=== PATIENT | female | born 1965 | race Caucasian/White ===

== ENCOUNTER 2019-02-25 09:52 | Inpatient (IN) ==
--- NOTE | 2019-02-25 10:25 | EKG Report ---
Test Performed on : 02/25/2019 10:03:53 AM Test Reason : epigastric Blood Pressure : / mmHG Vent. Rate : 074 BPM Atrial Rate : 074 BPM P-R Int : 124 ms QRS Dur : 080 ms QT Int : 396 ms P-R-T Axes : 048 051 051 degrees QTc Int : 439 ms Normal sinus rhythm. Normal ECG No previous ECGs available Unconfirmed Result
[2019-02-25 10:39] LABS: BASO# 0.03 X1000 (0.0-0.2); BASO% 0.4 % (0.0-0.8); EOS# 0.29 X1000 (0.0-0.7); EOS% 3.4 % (0.0-10.0); HEMOGLOBIN 14.8 g/dL (12.0-16.0); IMM GRAN# 0.03 X1000 (0.0-0.04); IMM GRAN% 0.4 % (0.0-0.5); LYMPH# 1.91 X1000 (1.2-3.4); LYMPH% 22.6 % (20.5-51.1); MCH 28.8 PG (27-31); MCHC 32.9 g/dL (33-37); MCV 87.5 FL (81-99); MONO# 0.48 X1000 (0.11-0.59); MONO% 5.7 % (1.7-9.3); MPV 10.6 FL (7.4-10.4); NEUT% 67.5 % (42.2-75.2); PLT 208 X1000 (130-400); RBC 5.14 XMIL (4.2-5.4); RDW 13.1 % (11.5-14.5); WBC 8.44 X1000 (4.8-10.8)
[2019-02-25] MEDS ORDERED: ZOFRAN IV ONE (11:02)
[2019-02-25] MEDS ORDERED: DILAUDID IV ONE ×2 (11:02→13:07)
--- NOTE | 2019-02-25 11:03 | PROVIDER DOCUMENTATION ---
HPI-Abdominal Pain/GI Problem - General Chief Complaint: Abdominal Pain Stated Complaint: UPPER ABD PAIN Time Seen by Provider: 02/25/19 10:03 Source: patient Allergies/Adverse Reactions: Patient Allergies Allergy/AdvReac Type Severity Reaction Status Date / Time chocolate flavor Allergy ANAPHYLAXIS Verified 02/25/19 17:27 cinnamon Allergy ANAPHYLAXIS Verified 02/25/19 17:27 morphine Allergy HIVES Verified 02/25/19 17:03 peanut Allergy ANAPHYLAXIS Verified 02/25/19 17:27 Sulfa (Sulfonamide Allergy ITCHING Verified 04/26/16 18:08 Antibiotics) Home Medications: Home Medication List Medication Instructions Recorded Confirmed Last Taken Type Hydrocodone/Acetaminophen [[place] 1 ea PO Q6H PRN PRN #10 tab 02/27/19 Unknown Rx 7.5-325 Tablet] - History of Present Illness-ABD Nature of Presenting Problems: 53 YO F no pmh presents with c/o abd pain x 12 hours associated n/v. last BM was today and normal. Last took Maalox 1hr [employer]. Abdominal Pain Onset Location: reports: epigastric Pain Radiation: reports: back Quality of Pain: reports: aching, sharp, tearing Onset/Duration: reports: other (12 hours ago) Timing: reports: still present, getting worse Activities at Onset: reports: none Exposure to sick contacts?: No Modifying Factors: improves with: nothing Associated Symptoms: reports: heartburn, loss of appetite. denies: cough, di arrhea, dizziness, malaise, nausea, syncope, vomiting Last BM: this morning Dark Stools Present?: reports: none noticed Review of Systems - Adult - REVIEW OF SYSTEMS - ADULT Constitutional: denies: chills, fever Eyes: reports: no symptoms reported Ears, Nose, Mouth & Throat: reports: no symptoms reported Cardiovascular: reports: no symptoms reported. denies: chest pain Respiratory: reports: no symptoms reported. denies: cough, shortness of breath, wheezing Gastrointestinal: reports: see HPI, abdominal pain, nausea, poor appetite. denies: vomiting Genitourinary: reports: no symptoms reported Musculoskeletal: reports: no symptoms reported Integumentary: reports: no symptoms reported Neurological: reports: no symptoms reported Psychiatric: reports: no symptoms reported Endocrine: reports: no symptoms reported Hematologic/Lymphatic: reports: no symptoms reported Past History - Adult - PAST MEDICAL HISTORY-ADULT Review of Records: reports: Old Records Reviewed, Social history reviewed & non- contributory. Major Childhood Illnesses: reports: denies history Cardiovascular: reports: denies history Respiratory: reports: bronchitis, COPD Gastrointestinal: reports: denies history Obstetrical/Gynecological: reports: denies history Genitourinary: reports: denies history Musculoskeletal: reports: denies history Neurological: reports: denies history Psychiatric: reports: denies history Endocrine/Immune: reports: denies history Other Conditions: reports: denies history - PRIOR SURGERIES/PROCEDURES Surgical/Procedure History: reports: other (none recent) - IMMUNIZATION STATUS Childhood Immunizations: UTD - FAMILY HISTORY Family History: reviewed, not pertinent - SOCIAL HISTORY Smoking: cigarettes, less than 1 pack/day Substance Use: denies Alcohol Use Frequency: occasionally Living Situation: family Physical Exam-General - PHYSICAL EXAM-ADULT Initial Vital Signs Reviewed: Yes - CONSTITUTIONAL General Appearance: alert, moderate distress (from pain) - EYES Eyes: PERRL/EOMI, pink conjunctivae - HEAD, EARS, NOSE, MOUTH & THROAT HENMT: normocephalic/atraumatic, moist mucous membranes - NECK Neck: supple - RESPIRATORY Respiratory: lungs clear, normal breath sounds, no pleuratic chest pain - CARDIOVASCULAR Cardiovascular: regular rate, rhythm, no edema - GASTROINTESTINAL (ABDOMEN) Abdominal Exam: non tender, soft. negative: rebound, tenderness (could not illicit a tender spot on exam) - MUSCULOSKELETAL Back Exam: no CVA tenderness Extremity: normal range of motion, normal gait, normal inspection, no pedal edema - SKIN Integumentary: normal color, normal turgor, warm/dry - NEUROLOGIC Neurologic: grossly normal - PSYCHIATRIC Psych/Mental Status: normal mood/affect, tearful Progress - PLAN OF CARE/RESULTS Progress/Plan/Lab Results: Vital Signs - 8 hr 02/25/19 09:56 Temperature 97.7 F Pulse Rate 80 Respiratory Rate 18 Blood Pressure 167/102 O2 Sat by Pulse Oximetry 98 Laboratory Results - last 24 hr 02/25/19 10:04 WBC 8.44 RBC 5.14 Hgb 14.8 Hct 45.0 MCV 87.5 MCH 28.8 MCHC 32.9 L RDW Std Deviation 13.1 Plt Count 208 MPV 10.6 H Immature Gran % (Auto) 0.4 Neut % (Auto) 67.5 Lymph % (Auto) 22.6 [place] % (Auto) 5.7 Eos % (Auto) 3.4 Baso % (Auto) 0.4 Immature Gran # (Auto) 0.03 Neut # (Auto) 5.70 Lymph # (Auto) 1.91 [place] # (Auto) 0.48 Eos # (Auto) 0.29 Baso # (Auto) 0.03 Orders Category Date Time Status Saline Loc DIRECTED Care 02/25/19 10:03 Active NPO Diet 02/25/19 10:[address] ABDOMEN/PELVIS W/O CONTRAST [CT] Stat Exams 02/25/19 11:01 Ordered AMYLASE [CHEM] Stat Lab 02/25/19 10:04 Received CBC WITH ELECTRONIC DIFF [HEME] Stat Lab 02/25/19 10:04 Completed COMPREHENSIVE METABOLIC PANEL [CHEM] Stat Lab 02/25/19 10:04 Received LIPASE [CHEM] Stat Lab 02/25/19 10:04 Received TEST-URINE [PREG] Stat Lab 02/25/19 10:03 Uncollected URINALYSIS W/POSS RFLX CULT [URINALYSIS] Stat Lab 02/25/19 10:03 Uncollected Hydromorphone [Dilaudid] Med 02/25/19 11:02 Once 1 mg IV NOW ONE Ondansetron [Zofran] Med 02/25/19 11:02 Once 4 mg IV NOW ONE EKG [EKG] Stat Ther 02/25/19 10:04 Draft paged for gen surg at 1155 Result Diagrams: 02/25/19 10:04 02/27/19 06:38 - REASSESSMENT Reassessment #1 Time Reassessed: 11:45 Status: improving (pt resting comfortably, pain improving.) Reassessment #2 Time Reassessed: 13:27 Status: worsening (pt reevaluated, in sig pain. will give more dilaudid and admit) Reassessment #3 Time Reassessed: 14:02 Status: other (informed Dr. Villalba about admitting pt. will admit to [facility] for pain control.) - EKG 1 Time of EKG reading by physician:: 10:05 EKG Read and Signed by:: Gabo Garza EKG Interpretation (*Must complete 3 of following elements*): Normal Rate: 74 Rhythm: NSR [place]: normal QRS: normal OR Interval: normal ST Wave: normal Prior EKG Comparison: no prior EKG - CT/MRI 1 CT Study: Abdomen, Pelvis Impression: See EMR Report (EXAM: CT ABDOMEN/PELVIS W/O CONTRAST INDICATION: epigastric pain TECHNIQUE: This exam was performed using automated exposure control, adjustment of mA or kV according to patient size, and/or use of iterative reconstruction technique. COMPARISON: 04/26/2016 FINDINGS: There are several stable large stones in the gallbladder lumen. No pericholecystic inflammatory changes appreciated. There is no evidence of biliary dilatation. The spleen is borderline to mildly prominent but essentially stable measuring up to 13.6 cm in the greatest axial dimension. The liver, pancreas, adrenal glands, kidneys, and urinary bladder are grossly unremarkable. The reproductive tract is unremarkable as imaged. There is mild uncomplicated sigmoid colonic diverticulosis. There is no evidence of appendicitis. No bowel wall thickening or bowel obstruction is appreciated. The remainder of the GI tract is grossly unremarkable. No focal inflammatory changes, free abdominal gas, or free fluid is appreciated. There is no evidence of acute osseous abnormality. IMPRESSION: 1.Cholelithiasis. 2.Stable borderline to mildly prominent spleen. 3.Very mild uncomplicated diverticulosis coli. 4.No definite acute pathology by CT.) - CONSULTS/PCP/HOSPITALIST Notification #1 *Consult/PCP/Hospitalist*: Spoke with Dr. Villalba Time Discussed: 13:06 (states to send pt to office now.) Consult Disposition: F/U in office #2 Consult: admit to hospitalist Time Discussed: 14:20 Consult Disposition: Will see in ED, Admit Departure - Departure Date of Disposition Decision: 02/25/19 Time of Disposition Decision: 11:40 DIAGNOSIS: Acute cholecystitis Disposition: ADMITTED INPATIENT 09 Certified Medical Emergency: Emergent Condition: Stable - Critical Care Note This patient required my direct & personal management of CC.: No Attestation - Physician/ MOE Attestation The physician spent face to face time with patient:: Yes Advanced Practice Provider documentation review:: Supervising physician onsite and consulted in the evaluation and care of this patient. The physician did have a face to face encounter with the patient.
[2019-02-25 11:04] LABS: AGAP 13; ALB/GLOB RATIO 1.5; ALBUMIN 4.1 g/dL (3.5-5.0); ALKALINE PHOSPHATASE 122 U/L (32-104); AMYLASE 68 U/L (20-200); BUN 13 mg/dL (8-22); CALCIUM 9.2 mg/dL (8.8-10.2); CHLORIDE 98 mmol/L (98-107); COSMO 272; CREATININE 0.6 mg/dL (0.5-0.9); ESTIMATED GFR > 60; GLUCOSE 102 mg/dL (70-104); GOT 49 U/L (10-30); GPT 47 U/L (10-36); LIPASE 26 U/L (13-60); POTASSIUM 4.5 mmol/L (3.5-5.1); SODIUM 136 mmol/L (136-145); TCO2 25 mmol/L (25-35); TOTAL BILIRUBIN 0.28 mg/dL (0.20-1.00); TOTAL PROTEIN 6.9 g/dL (6.3-8.3)
--- NOTE | 2019-02-25 11:32 | Diag Imaging Result Doc PS360 ---
EXAM: CT ABDOMEN/PELVIS W/O CONTRAST INDICATION: epigastric pain TECHNIQUE: This exam was performed using automated exposure control, adjustment of mA or kV according to patient size, and/or use of iterative reconstruction technique. COMPARISON: 04/26/2016 FINDINGS: There are several stable large stones in the gallbladder lumen. No pericholecystic inflammatory changes appreciated. There is no evidence of biliary dilatation. The spleen is borderline to mildly prominent but essentially stable measuring up to 13.6 cm in the greatest axial dimension. The liver, pancreas, adrenal glands, kidneys, and urinary bladder are grossly unremarkable. The reproductive tract is unremarkable as imaged. There is mild uncomplicated sigmoid colonic diverticulosis. There is no evidence of appendicitis. No bowel wall thickening or bowel obstruction is appreciated. The remainder of the GI tract is grossly unremarkable. No focal inflammatory changes, free abdominal gas, or free fluid is appreciated. There is no evidence of acute osseous abnormality. IMPRESSION: 1.Cholelithiasis. 2.Stable borderline to mildly prominent spleen. 3.Very mild uncomplicated diverticulosis coli. 4.No definite acute pathology by CT. Electronically signed by Freddie So 02/25/2019 11:29 AM
[2019-02-25 11:43] LABS: URINE SOURCE CLEAN CATCH
[2019-02-25 11:48] LABS: BILIRUBIN URINE NEGATIVE (NEGATIVE); BLOOD URINE NEGATIVE (NEGATIVE); COLOR YELLOW; GLUCOSE URINE NEGATIVE (NEGATIVE); KETONE URINE NEGATIVE (NEGATIVE); LEUKOCYTES URINE NEGATIVE (NEGATIVE); NITRITE URINE NEGATIVE (NEGATIVE); PROTEIN URINE TRACE mg/dL (NEGATIVE); SP GRAVITY URINE 1.024; TURBIDITY URINE CLEAR (CLEAR); UR EPITHELIAL CELLS <10 /HPF (<10); URINE BACTERIA 1+ /HPF; URINE RBC <10 /HPF (<10); URINE WBC <10 /HPF (<10); UROBILINOGEN URINE NORMAL (NORMAL)
[2019-02-25 12:04] LABS: UR AMPHETAMINES QUAL NONE DETECTED (NONE DETECT); UR BARBITUATES QUAL NONE DETECTED (NONE DETECT); UR BENZODIAZEPIN QUAL NONE DETECTED (NONE DETECT); UR CANNABINOIDS QUAL NONE DETECTED (NONE DETECT); UR COCAINE QUAL NONE DETECTED (NONE DETECT); UR METHADONE QUAL NONE DETECTED (NONE DETECT); UR OPIATES QUAL NONE DETECTED (NONE DETECT); UR OXYCODONE QUAL PRESUMPTIVE POSITIVE (NONE DETECT); UR PCP QUAL NONE DETECTED (NONE DETECT)
[2019-02-25] MEDS ORDERED: CIPRO PO ONE (13:04)
[2019-02-25] MEDS ORDERED: FLAGYL PO ONE (13:05)
[2019-02-25] MEDS ORDERED: NS 1,000 ML IV ONE (14:02)
[2019-02-25] MEDS ORDERED: TORADOL IV ONE (14:24)
[2019-02-25] MEDS ORDERED: BENTYL IM ONE (14:25)
[2019-02-25] MEDS ORDERED: SODIUM CHLORIDE 0.9% INJ ONE (16:35)
[2019-02-25] MEDS ORDERED: PEPCID IV ONE (16:35)
[2019-02-25] MEDS: DEMEROL IV PRN (17:00)
[2019-02-25] MEDS: NS 1,000 ML IV SCH (17:31)
[2019-02-25] MEDS: PEPCID IV SCH (21:01)
--- NOTE | 2019-02-25 21:38 | HISTORY AND PHYSICAL ---
PRIMARY CARE PROVIDER: None. CHIEF COMPLAINT: Intractable pain. HISTORY OF PRESENT ILLNESS: Ms. Ching is a 53-year-old female who carries a past medical history of GERD, gastric ulcers who reported that around 3 3:04 a.m. she started having epigastric pain that radiated to her left upper quadrant. She did not get any relief with Mylanta or Protonix. She came to the ED to be evaluated. She had a abdomen and pelvis CT that showed cholelithiasis, transaminitis. Imaging was reviewed by Dr. Villalba. The patient was initially set to be discharged and follow up him as an outpatient. However, the patient continued to have intractable pain, so she will be admitted with a General Surgery consult. We will keep her NPO, continue IV fluids, antiemetics, pain regimen and IV proton pump inhibitor. PAST MEDICAL HISTORY: GERD, gastric ulcer. PAST SURGICAL HISTORY: Tubal ligation. FAMILY HISTORY: Denies anything in first-degree relatives. HOME MEDICATIONS: Just [id number] Tagamet, Mylanta and Protonix. SOCIAL HISTORY: She is . She has children. She is a half pack per day smoker. No alcohol or illicit drug use. REVIEW OF SYSTEMS: Completely negative except for those mentioned in HPI. ALLERGIES: Levofloxacin and sulfa causes itching. PHYSICAL EXAMINATION: VITAL SIGNS: Temperature is 97.8 degrees, heart rate 80, respirations 18, blood pressure 167/102, O2 is 98% on room air. GENERAL: Ms. Ching is a 53-year-old female who is lying on her right side, holding her abdomen, appears to be in pain, but in no acute distress. HEENT: Atraumatic, normocephalic. PERRL. NECK: Supple. Trachea midline. CARDIOVASCULAR: S1, S2 appreciated. No murmurs, gallops, rubs noted. RESPIRATORY: Lung sounds clear bilaterally. GI: Is soft and tender in the epigastric region. Positive bowel sounds 4 quadrants. EXTREMITIES: Lower extremities are negative for edema. NEUROLOGIC: No focal deficits noted. DIAGNOSTIC DATA: Abdomen and pelvis CT: Cholelithiasis stable borderline, mildly prominent spleen, very mild uncomplicated diverticulosis coli. EKG: Normal sinus rhythm. LABORATORY DATA: Is essentially remarkable. Elevated transaminitis with AST of 49, ALT of 47, alkaline phosphatase of 122. ASSESSMENT AND PLAN: 1. Cholelithiasis with intractable pain. We will continue NPO status, IV fluids, IV Demerol, antiemetics. Consult Dr. Villalba. 2. Gastritis. We will continue with IV proton pump inhibitor. 3. Further recommendations to follow physician evaluation, laboratory and diagnostic data. 4. Transaminitis secondary to #1. Dictated by CHACE Dai for Justen Vasquez MD cc: MD Kayla Rodriguez MD
--- NOTE | 2019-02-26 02:56 | HISTORY AND PHYSICAL ---
ADDENDUM: The patient was seen and examined by me [id number]. All the laboratory, lab, vital signs, and images were reviewed. The patient presented to the emergency department complaining of abdominal pain. As per the patient, the pain started around 4 a.m. Also, as per the patient, she has been having this kind of problems before. Actually, I checked her laboratory back in 2017 and her LFTs were elevated. She knows that she has been having some gallstones since 2009. We did a CT scan that showed cholelithiasis and Surgery Department has evaluated this patient. She does not have leukocytosis or fever, but they are planning to do a cholecystectomy tomorrow. This patient has been placed NPO, continue with IV fluids. I agree with the rest of the nurse practitioner's assessment and plan. cc: Justen Vasquez MD
--- NOTE | 2019-02-26 07:40 | CONSULTATION ---
DATE OF CONSULTATION: 02/25/2019 Pham Ching is a 53-year-old white female who was admitted through our emergency department after suffering a gallbladder attack. She presented to the emergency department with epigastric pain. A CT scan was performed which documented gallstones but no surrounding inflammation around the gallbladder. They could not control her symptoms in the emergency room and therefore she was admitted for further care. PAST MEDICAL HISTORY: Tubal ligation, cervical spine disk problem, COPD. MEDICATIONS: None. ALLERGIES: Sulfa. SOCIAL HISTORY: She does smoke. She is not working. She lives in [place]. Her family was at the bedside. REVIEW OF SYSTEMS: A 14-point review of systems was performed and was essentially negative. She has had previous gallbladder attacks. FAMILY HISTORY: Family history was reviewed with her and was essentially noncontributory. PHYSICAL EXAMINATION: General: Ms. Ching is a middle-aged white female no acute distress. Vital Signs: Her temperature is 97.7 degrees, pulse is 80, blood pressure 167/102, O2 saturation 98%. She is 5 feet 5 inches. She weighs 201 pounds. HEENT exam: No jaundice. No oral lesions. Satisfactory dentition. No cervical or supraclavicular lymphadenopathy. Heart: Has regular rate. Lungs: Are clear to auscultation and percussion bilaterally. Abdomen: Was soft. I could not feel her gallbladder. She did not have much tenderness. She had no previous scar or evidence of hernia. No costovertebral tenderness. Rectal and vaginal: Exams were not performed. Extremities: She does have palpable peripheral pulses. No peripheral edema. Neurological: She is alert and oriented x3 and appropriate. IMPRESSION: Symptomatic gallstones. PLAN: Laparoscopic cholecystectomy with intraoperative cholangiogram. Hopefully, we can do this tomorrow. I have discussed the procedure in detail with her at the bedside including her including risks of bleeding, infection, injury to the extrahepatic bile ducts requiring reoperation, conversion of laparoscopic to open cholecystectomy, bile leak requiring reoperation for drainage, and injury to intra-abdominal contents for trocar placement. She understands the need for surgery and its risks and she wants to proceed. cc: Kayla Villalba MD
[2019-02-26 07:46] LABS: AGAP 10; ALB/GLOB RATIO 1.2; ALBUMIN 3.5 g/dL (3.5-5.0); ALKALINE PHOSPHATASE 120 U/L (32-104); BUN 7 mg/dL (8-22); CALCIUM 8.8 mg/dL (8.8-10.2); CHLORIDE 102 mmol/L (98-107); COSMO 271; CREATININE 0.6 mg/dL (0.5-0.9); ESTIMATED GFR > 60; GLUCOSE 91 mg/dL (70-104); GOT 41 U/L (10-30); GPT 37 U/L (10-36); POTASSIUM 4.4 mmol/L (3.5-5.1); SODIUM 137 mmol/L (136-145); TCO2 25 mmol/L (25-35); TOTAL BILIRUBIN 0.44 mg/dL (0.20-1.00); TOTAL PROTEIN 6.5 g/dL (6.3-8.3)
[2019-02-26] MEDS: PEPCID IV SCH (08:22)
[2019-02-26] MEDS: DEMEROL IV PRN ×3 (08:22→22:33)
[2019-02-26] MEDS: NS 1,000 ML IV SCH (08:23)
--- NOTE | 2019-02-26 13:28 | PROGRESS NOTE ---
DATE: 02/26/2019 SUBJECTIVE: This patient is feeling better. She is still complaining of some mild right upper quadrant pain, she is scheduled today for a cholecystectomy, hopefully laparoscopically. OBJECTIVE: Vital Signs: Temperature 98.1 degrees, pulse 74, respiratory rate 14, blood pressure 141/83, oxygen saturation 98 on room air. HEENT: Head normocephalic, no trauma. PERRLA. Neck: Supple. No JVD. No masses. Central trachea. Chest: Clear to auscultation. No wheezing. No rales. Abdomen: Soft. Some tenderness to palpation at the level of the right upper quadrant. Extremities: No edema, no clubbing, no cyanosis. Neurological: The patient is alert. She is oriented x3. No focal deficits. LABORATORY: Sodium 137, potassium 4.4, chloride 102, bicarbonate 25, BUN 7, creatinine 0.6 glucose 91, calcium 8.8. AST 41, ALT 37, alkaline phosphatase 120. ASSESSMENT AND PLAN: 1. Cholelithiasis with symptomatic gallstones. Surgery department has evaluated this patient. She is SP she has been placed on pain medication and IV fluids. She is scheduled to get a cholecystectomy done today. 2. Gastritis. Continue with proton pump inhibitors. 3. Transaminitis secondary to #1. cc: Justen Vasquez MD
[2019-02-26] MEDS ORDERED: SODIUM CHLORIDE 0.9% ONE (14:32)
[2019-02-26] MEDS ORDERED: MARCAINE 0.25% PF/EPI 1:200,000 ONE (14:32)
[2019-02-26] MEDS ORDERED: LR 1,000 ML ONE (14:33)
[2019-02-26] MEDS ORDERED: DIPRIVAN 1% ONE (14:40)
[2019-02-26] MEDS ORDERED: VERSED ONE (14:42)
[2019-02-26] MEDS ORDERED: KEFZOL 1 GM/D5W 1 GM/50 ML IVPB IV ONE (14:56)
[2019-02-26] MEDS ORDERED: DILAUDID ONE (15:35)
[2019-02-26] MEDS ORDERED: XYLOCAINE-MPF 2% ONE (16:00)
[2019-02-26] MEDS ORDERED: QUELICIN (DOSE) ONE (16:00)
[2019-02-26] MEDS ORDERED: DECADRON ONE (16:00)
[2019-02-26] MEDS ORDERED: ZEMURON ONE (16:00)
[2019-02-26] MEDS ORDERED: OFIRMEV 1000 MG/ISOTONIC SOLN 1,000 MG/100 ML BOTTLE ONE (16:00)
[2019-02-26] MEDS ORDERED: ROBINUL ONE (16:00)
[2019-02-26] MEDS ORDERED: NEOSTIGMINE ONE (16:00)
[2019-02-26] MEDS ORDERED: ZOFRAN ONE (16:00)
--- NOTE | 2019-02-26 16:24 | Diag Imaging Result Doc PS360 ---
EXAM: OPERATIVE CHOLANGIOGRAM 02/26/2019 HISTORY: GALLBLADDER TECHNIQUE: One image COMMENT: There are no filling defects. Contrast is seen entering the duodenum. IMPRESSION: No evidence of retained stones. Electronically signed by Cirilo Schroeder 02/26/2019 4:21 PM
--- NOTE | 2019-02-26 21:44 | OPERATIVE NOTE ---
PROCEDURE DATE: 02/26/2019 PREOPERATIVE DIAGNOSIS: Acute cholecystitis with cholelithiasis. POSTOPERATIVE DIAGNOSIS: Acute cholecystitis with cholelithiasis. PRINCIPAL PROCEDURE: Laparoscopic cholecystectomy with intraoperative cholangiogram. SURGEON: Kayla Villalba MD. ANESTHESIA: General in addition to local anesthetic. ESTIMATED BLOOD LOSS: 100 mL. DRAINS: None. INDICATIONS: Ms. Pham Ching is a 54-year-old, white female, who presented to our emergency department yesterday, with epigastric and right upper quadrant pain. CT scan of her abdomen suggested gallstones. It was felt that her gallstones were symptomatic. They were unable to control her symptoms while in the emergency department, and therefore she was admitted for further treatment. FINDINGS: She had acute cholecystitis. Her gallbladder was acutely inflamed, distended, and full of stones. We did do an intraoperative cholangiogram, which showed free flow of the dye into the duodenum without evidence of extrahepatic stones or obstruction. There was no abnormal dilatation of the extrahepatic bile ducts. The liver appeared to be normal and no other intra-abdominal pathology was noted. DESCRIPTION OF PROCEDURE: The patient was brought to the operating room, placed supine, received general anesthesia, was intubated. Her abdomen was prepped and draped within the sterile field. We made a curvilinear incision below the umbilicus using a 15-blade scalpel. Veress needle was introduced through this incision into the abdomen. Pneumoperitoneum was established. The Veress needle was removed and we placed a 11 mm trocar through this incision into the abdomen. The camera was placed through this port. The abdomen was explored for injury and there was none. Three other trocars were placed along the right costal margin under direct vision of the camera. We placed an 11 mm trocar just to the right of the midline, and two 5 mm trocars in our midclavicular and anterior axillary lines. Her omentum was tightly adhered to the fundus and underside of the gallbladder. We had to take it down bluntly. She had some large lymph nodes within the triangle of [place]. We decompressed the gallbladder with a needle and suction, and there was clear, slightly green bile within it. She had multiple stones. We used a grasper with teeth to grab the fundus of the gallbladder and retracted superiorly along with the right lobe of the liver. Another grasper was used to grab the body of the gallbladder and this was a difficult dissection. We had to take down all the inflamed omentum off the underside of the gallbladder. We had to remove some of the lymph nodes and push them down as we dissected the triangle of [place]. We identified the cystic artery initially, 2 clips were placed proximally, 1 distally, and it was divided using hook scissors. We had to bluntly take it down and follow the gallbladder where we could find the cystic duct. We placed a clip at the cystic duct-gallbladder junction. We made a small incision in the cystic duct using hook scissors and a taut intraoperative cholangiogram catheter was used to perform the cholangiogram with the findings above. Once cholangiogram was completed, 2 clips were placed proximally on the cystic duct, and we divided the cystic duct between clips using hook scissors. The spatula cautery was used to remove the gallbladder from the liver bed and then we used an endobag to remove the gallbladder through our umbilical incision. We had to enlarge this incision slightly to remove this inflamed gallbladder full of stones. We placed the trocar back through this incision, and the area of operation was thoroughly inspected, irrigated, and the irrigation was removed with suction. There was no evidence of ongoing bleeding or bile leak. We decided against leaving drains. All trocars removed under direct vision of the camera. The pneumoperitoneum was allowed to dissipate. I used 2 figure-of- eight, 2-0 Vicryl stitches to reapproximate the fascia at the umbilicus and all skin was closed with 4-0 Monocryl subcuticular stitches. Steri-Strips were applied. She tolerated the procedure well with plans for her to go to the recovery room and then be readmitted to the floor. cc: Kayla Villalba MD
[2019-02-26] MEDS: ZOFRAN IV PRN (22:33)
[2019-02-27] MEDS: SODIUM CHLORIDE 0.9% INJ SCH ×2 (01:01→08:52)
[2019-02-27] MEDS: PEPCID IV SCH ×2 (01:01→08:52)
[2019-02-27] MEDS: NS 1,000 ML IV SCH (01:06)
[2019-02-27] MEDS: DEMEROL IV PRN ×3 (02:37→11:09)
[2019-02-27] MEDS: ZOFRAN IV PRN (07:01)
[2019-02-27 08:09] LABS: AGAP 11; ALBUMIN 3.4 g/dL (3.5-5.0); ALKALINE PHOSPHATASE 119 U/L (32-104); BUN 7 mg/dL (8-22); CALCIUM 9.2 mg/dL (8.8-10.2); CHLORIDE 101 mmol/L (98-107); COSMO 272; CREATININE 0.6 mg/dL (0.5-0.9); ESTIMATED GFR > 60; GLUCOSE 102 mg/dL (70-104); GOT 47 U/L (10-30); GPT 38 U/L (10-36); POTASSIUM 4.5 mmol/L (3.5-5.1); SODIUM 137 mmol/L (136-145); TCO2 25 mmol/L (25-35); TOTAL BILIRUBIN 0.41 mg/dL (0.20-1.00); TOTAL PROTEIN 6.7 g/dL (6.3-8.3)
[2019-02-27 11:37] VITALS: BP 136/77
--- NOTE | 2019-02-28 14:13 | DISCHARGE SUMMARY ---
ADMISSION DATE: 02/25/2019 DISCHARGE DATE: 02/27/2019 ADMITTING DIAGNOSIS: Acute cholecystitis. DISCHARGE DIAGNOSIS: Acute cholecystitis. PRINCIPAL PROCEDURE: Laparoscopic cholecystectomy with intraoperative cholangiogram on 02/26/2019. DISCHARGE DISABILITY: Full. DISCHARGE DIET: Regular. DISCHARGE DISPOSITION: She will return to my outpatient offices in 7 to 10 days for a recheck. DISCHARGE MEDICATIONS: She is to return to her home medications. HISTORY AND HOSPITAL COURSE: Ms. Pham Ching is a 54-year-old white female who presented to our emergency department on 02/25/2019 with epigastric and right upper quadrant pain. A CT scan of her abdomen and pelvis was performed, which documented cholelithiasis. It was felt that she had symptomatic gallstones, and she was admitted to our hospitalists. We were asked to evaluate her, and on hospital day 2 she went to the operating room and underwent a laparoscopic cholecystectomy with intraoperative cholangiogram for acute cholecystitis. We felt that the operation went safely. No drains were left at the time of surgery, and after surgery she went to the recovery room and then back to the floor. On postoperative day 1, she was awake. She was clinically improved. She was tolerating a diet. It was felt safe to discharge her home under the care of her . At discharge, her heart rate was 75 blood pressure 136/77, and O2 saturation 97%, and she was afebrile. All trocar sites were intact. She knows to contact me with any problems such as increasing abdominal distention, pain, or fever. cc: Kayla Villalba MD
--- NOTE | 2019-02-28 14:50 | DISCHARGE SUMMARY ---
ADMISSION DATE: 02/25/2019 DISCHARGE DATE: 02/27/2019 PRIMARY CARE PROVIDER: None. PERTINENT PROCEDURES: 1. Abdomen and pelvis CT: Cholelithiasis stable, borderline. Mildly prominent spleen, very mild uncomplicated diverticulosis coli. 2. Laparoscopic cholecystectomy with intraoperative cholangiogram by Dr. Chong Villalba. DISCHARGE DIAGNOSES: 1. Acute cholecystitis with cholelithiasis, status post laparoscopic cholecystectomy with intraoperative cholangiogram performed by Dr. Chong Villalba. The patient has had a stable hospital course, and she will be discharged home today to follow up with Dr. Villalba postoperatively. She is currently tolerating a full liquid diet. Will be discharged home on oral Solon. 2. Transaminitis secondary to #1. Stable. HOSPITAL COURSE: Briefly, Ms. Ching is a 53-year-old female with past medical history of GERD, gastric ulcers, who came to the ED complaining of epigastric pain that radiated to her left upper quadrant. She came to the ED to be evaluated. She was found to have transaminitis. A CT of the abdomen and pelvis was obtained that showed cholelithiasis. The patient remained symptomatic, was admitted for intractable pain. Dr. Villalba was consulted and the patient underwent a laparoscopic cholecystectomy for acute cholecystitis with cholelithiasis. She has had a stable hospital course. She is tolerating a full liquid diet and will be discharged home on p.o. Solon to follow up with Dr. Villalba. VITAL SIGNS: At time of her discharge, temperature is 98.1 degrees, heart rate 75, respirations 16, blood pressure 136/77, O2 is 97% on room air. DISCHARGE DIET: Full liquid. DISCHARGE MEDICATIONS: Solon 7.5/325 q. 6 hours p.r.n. x10 tablets. FOLLOW-UP AND DISCHARGE INSTRUCTIONS: Ms. Ching is to follow up with Dr. Villalba on the at 2:15 p.m. She is to take all medications as prescribed. She can return to the ED or call 911 for any worsening of symptoms. Dictated by CHACE Dai for Justen Vasquez MD cc: MD Kayla Rodriguez MD
== END 2019-02-27 17:16 | disposition home or self-care (01) | DRG 419 ==
LOC: ED 09:52 → 3N 14:42
PROVIDERS: ATTEND Internal Medicine